=== PATIENT | male | born 1965 | race Caucasian/White ===

== ENCOUNTER 2018-01-25 04:40 | Inpatient (IN) | payer BC ==
[2018-01-24 16:00] LABS: INR 0.9
[~2018-01-25] VITALS: Ht 182.9 cm; Wt 106.1 kg
[2018-01-25] VITALS (16 sets, daily range): BP systolic 104–122; BP diastolic 70–89
--- NOTE | 2018-01-25 01:45 | LEVENE H&P ---
DATE OF ADMISSION: January 25, 2018 IDENTIFICATION/CHIEF COMPLAINT Armand is a 52-year-old gentleman with progressive left hip pain. HISTORY OF PRESENT ILLNESS Patient has a longstanding history of hip arthritis, progressively painful and debilitating, refractory to conservative care. Surgery is indicated to relieve symptoms after failure of nonoperative measures. PAST MEDICAL HISTORY Notable for gout. PAST SURGICAL HISTORY Notable for: 1. Knee scope. 2. Tonsillectomy. 3. Hand surgery. ALLERGIES He has no known drug allergies. CURRENT MEDICATIONS He takes no prescription medications. SOCIAL HISTORY Negative for drug abuse. He chews tobacco and drinks beer routinely, but denies abuse. REVIEW OF SYSTEMS Noncontributory. PHYSICAL EXAMINATION GENERAL: This is a well-developed, well-nourished male who appears stated age. HEENT: Normocephalic, atraumatic. NECK: Supple. LUNGS: Clear. HEART: Regular rate and rhythm. ABDOMEN: Soft. ORTHOPEDIC EXAMINATION Left hip is very stiff. Combined flexion and rotation reproduces pain exactly. His hip girdle strength is good. Skin envelope is intact. Calves nontender. Neurovascular function intact. Radiographs demonstrate advanced left hip arthritis. ASSESSMENT Left hip degenerative joint disease, progressively painful and debilitating, refractory to conservative care. PLAN Per patient request, going to proceed with total hip arthroplasty. The nature of the procedure, the risks, benefits, the anticipated rehabilitative course were reviewed. The risks of the procedure include but are not limited to , major medical or anesthetic complication, infection, neurovascular injury, blood transfusion, stiffness, scarring, fracture or tendon rupture, leg length discrepancy, instability, implant loosening, migration, or failure, need for additional surgery and other unforeseen. He understands and wishes to proceed. A signed permit is placed in the chart. No guarantees are given or implied. [facility]
[2018-01-25] MEDS ORDERED: FAMOTIDINE 20 MG TAB ONE (05:27)
[2018-01-25] MEDS: NORMOSOL R SOLN(*) 1000 ML BAG 1,000 ML IV PRN ×2 (07:10→08:36)
[2018-01-25] MEDS ORDERED: DEXAMETHASONE SOD 4 MG/ML VIAL ONE (07:51)
[2018-01-25] MEDS ORDERED: fentaNYL CITR 100 MCG/2 ML AMP ONE (07:51)
[2018-01-25] MEDS ORDERED: PROPOFOL EMUL(*) 10MG/ML 20 ML 20 ML ONE (07:51)
[2018-01-25] MEDS ORDERED: LIDOCAINE MPF 1% 5 ML VIAL ONE (07:51)
[2018-01-25] MEDS ORDERED: ONDANSETRON 4 MG/2 ML VIAL ONE (07:51)
[2018-01-25] MEDS ORDERED: KETAMINE HCL-NS 50 MG/5 ML SYR ONE (07:52)
[2018-01-25] MEDS ORDERED: MIDAZOLAM 2 MG/2 ML VIAL IVP PRN (09:15)
[2018-01-25] MEDS ORDERED: ceFAZolin(*) 2GM/D5W 50ML 50 ML IVPB ONE (09:15)
[2018-01-25] MEDS ORDERED: TRANEXAMIC AC 1000 MG/10ML SDV 1,000 MG in DEXTROSE 5% 50 ML BAG 50 ML IV ONE (09:15)
[2018-01-25] MEDS ORDERED: LIDOCAINE/SOD BICARB 8.4% SYR ID ONE (09:15)
[2018-01-25] MEDS ORDERED: CELECOXIB 200 MG CAP PO ONE (09:15)
[2018-01-25] MEDS ORDERED: ACETAMINOPHEN 500 MG TAB PO ONE (09:15)
[2018-01-25] MEDS ORDERED: cloNIDine EPIDUR INJ 100MCG/ML 40 MCG, ROPIVACAINE 0.5% 20 ML VIAL 25 ML, EPINEPHrine H... INJ ONE (09:15)
[2018-01-25] MEDS ORDERED: FAMOTIDINE 20 MG/50 ML PREMIX IVPB ONE (09:15)
[2018-01-25] MEDS ORDERED: PREGABALIN 150 MG CAPSULE PO ONE (09:15)
[2018-01-25] MEDS ORDERED: VANCOMYCIN 1 GM VIAL ONE (09:30)
[2018-01-25] MEDS ORDERED: BISACODYL 10 MG SUPP PR PRN (12:10)
[2018-01-25] MEDS ORDERED: diphenhydrAMINE 50 MG/ML VIAL IVP PRN (12:10)
[2018-01-25] MEDS ORDERED: ACETAMINOPHEN 325 MG TAB PO PRN (12:10)
[2018-01-25] MEDS ORDERED: DIAZEPAM 5 MG TAB PO PRN (12:10)
[2018-01-25] MEDS ORDERED: ZOLPIDEM TARTRATE 5 MG TAB PO PRN (12:10)
[2018-01-25] MEDS ORDERED: BENZOCAINE/MENTHOL 1 EACH LOZG PO PRN (12:10)
[2018-01-25] MEDS ORDERED: NORMOSOL R SOLN(*) 1000 ML BAG 1,000 ML IV PRN (12:10)
[2018-01-25] MEDS ORDERED: MAGNESIUM HYDROXIDE* 30ML UDCP PO PRN (12:10)
[2018-01-25] MEDS ORDERED: PROMETHAZINE 25 MG/ML 1 ML AMP IVP PRN (12:10)
[2018-01-25] MEDS ORDERED: FLUSH 10 ML SYR IVP PRN (12:10)
[2018-01-25] MEDS ORDERED: diphenhydrAMINE 25 MG CAP PO PRN (12:10)
--- NOTE | 2018-01-25 12:25 | OPERATIVE REPORT 1 ---
EVENT DATE: January 25, 2018 SURGEON: Johan Hedrick MD ANESTHESIOLOGIST: Russ Pablo MD ANESTHESIA: General plus spinal. FINISHER HAND: SUSIE Quiroz, [employer] PREOPERATIVE DIAGNOSIS Left hip degenerative joint disease. POSTOPERATIVE DIAGNOSIS Left hip degenerative joint disease. PROCEDURE PERFORMED Left total hip arthroplasty. ESTIMATED BLOOD LOSS 300 cc. DRAINS None. SPECIMENS None. COMPLICATIONS None apparent. IMPLANTS USED Milo system with an Accolade II 132-degree size 6 stem, a Trident PSL SOARES acetabular shell size 32 mm, Trident X3 zero-degree polyethylene liner to accommodate 36 mm head a Biolox Delta Ceramic V40 femoral head, 36 mm plus 5 mm neck length. INDICATIONS Armand is a 52-year-old gentleman with intractable pain related to endstage hip arthritis. Surgery indicated to relieve symptoms after failure of nonoperative measures. DESCRIPTION OF PROCEDURE The patient was taken to the operating room, placed supine on the operating table. Spinal block is administered by the anesthesiologist. General anesthesia induced. Antibiotics and TXA are administered IV. The patient is positioned on the right lateral decubitus position on a well-padded pegboard. Pelvis is secured in the vertical position. All bony prominences and superficial nerves are well padded. The left hip girdle and lower extremity are prepped and draped in the usual sterile fashion for hip arthroplasty. A small incision posterolateral approach is made and carried down through the skin and subcutaneous tissue down to the deep fascia. The fascia is incised over the tip of the trochanter, extended distally in line with the femur, proximally in line with the schuyler fibers. Schuyler fibers are split bluntly. Trochanteric bursa is excised. Interval between the abductor and external rotator is identified and a blunt Hohmann is used to protect the abductor mechanism. An L capsulotomy/tenotomy is performed with the horizontal limb just above the piriformis and peeling the external rotators and the capsule off the posterior aspect of the femur. These are tagged with #2 Vicryl for later anatomic reattachment. Femoral head is dislocated. Endstage arthritic change is noted. A 1.5 cm neck cut is made consistent with preoperative templating. The femur is then translocated anteriorly and coty-acetabular retractors are placed with the tips down on bone to avoid injury to critical neurovascular structures. Labrum and pulvinar are excised. A 44 mm reamer is used to medialize through the true medial wall of the acetabulum. This is expanded in 2 mm increments up to 52 where nice rim contact is obtained. A trial 52 has nice fit. The throat of the acetabulum was opened with a 53 to accommodate the raised rim liner. The surfaces are copiously lavaged. The actual shell is impacted in approximately 40 degrees of lateral opening and 15 to 20 degrees of anteversion using the extracorporeal guide, internal bony landmarks, and the transverse acetabular ligament to guide socket placement. Rock-solid fixation is achieved. No adjuvant fixation is felt to be needed. Peripheral osteophytes were resected, particularly inferiorly around the acetabulum and then the actual liner was impacted into the cleaned and dried shell. It seats nicely. Attention is turned to femoral preparation. The superior neck is resected with a [employer] cutter. A Shanon awl finds the canal. Tapered serial broaching is performed with the broach only technique, starting with the 1 and working up to 6 where nice stability fit and fill are obtained. Trial reduction is performed off the 6 and and good mosque of the limb length and stability are achievable. The broach is extracted. The actual stem is then impacted, seats at about the same height. Trial reduction was performed with various neck lengths. Plus 5 is felt to be optimal with mosque of the soft tissue tension and limb length. Green taper is lavaged and dried, and the actual Biolox head is impacted into position. The joint is reduced. Wound is copiously lavaged. Meticulous hemostasis was assured. Pain cocktail infiltrated throughout. 1 gram of Vancomycin powder is placed deep in the wound and then the external rotators and capsule are reapproximated anatomically through drill holes in the posterolateral femur with a #2 Vicryl. Distal fascia closed with #2 Ethibond, proximally with #2 Vicryl. Subcutaneous tissue closed with 3-0 Vicryl, the skin with surgical darell, Xeroform and 4 x 4 dry, sterile dressing. Patient is rolled supine. Abduction pillow is placed. Awakened from anesthesia and taken to the recovery room in stable condition having tolerated the procedure well. PLAN Plan is for standard [facility] protocol. [facility]
--- NOTE | 2018-01-25 13:16 | RADIOLOGY IMAGING REPORT ---
FACILITY: [facility] PATIENT NAME: Armand Nichole : 1965 MR: [id number] V: [id number] EXAM DATE: ORDERING PHYSICIAN: KYLE CHONG TECHNOLOGIST: Location: [facility] Patient: Armand Nichole : 1965 Visit/Account:[id number] Date of Sevice: 01/25/2018 PELVIS Indication: [facility] LEFT Comparison: None. Findings: Postoperative changes from left total hip arthroplasty are seen. The acetabular and femora l components appear in good position. Impression: Postoperative changes left total hip arthroplasty. Report Dictated By: Christo Brooks at 01/25/2018 1:11 PM Report E-Signed By: Christo Brooks at 01/25/2018 1:11 PM WSN:VALORIE
--- NOTE | 2018-01-25 14:31 | Hospitalist Consultation ---
History of Present Illness Requesting Physician Dr. Hedrick Reason for Consult Medical Management Chief Complaint s/p left hip replacement History of Present Illness He was admitted s/p left hip replacement. It is reported the surgery went well and without complication. History Home Meds No Active Prescriptions or Reported Meds Allergies: Coded Allergies: No Known Drug Allergies (Unverified , 01/19/18) Patient History: FH: atrial fibrillation FATHER Hx Smoking: Yes (CHEWS TOBACCO 1 CAN Q3DAYS 35 YRS) Caffeine Intake: Coffee Caffeine/Cups Per Day: 1-2 CUPS DAILY, CAN SODA DAILY Hx Alcohol Use: Yes (3-4 beers/day) Alcohol Used: Beer Hx Substance Use Disorder: No Social Drug Use: Never History of IV Drug Use: No Review of Systems All Systems Reviewed/Normal: Yes, Except as Noted Exam Vital Signs Vital Signs Date Time Temp Pulse Resp B/P (MAP) Pulse Ox O2 Delivery O2 Flow Rate FiO2 01/25/18 13:57 94 Nasal Cannula 2.0 01/25/18 13:42 97.9 63 16 119/74 (89) General Appearance: Alert, Awake, No Acute Distress, Afebrile Neuro: No Gross deficits Cardiovascular: Regular Rate and Rhythm Respiratory: No Respiratory Distress, Clear to Auscultation GI: Abd Soft and Non-Tender Psych: Alert & Oriented X3, Appropriate Mood & Affect Assessment and Plan Problems: (1) Status post left hip replacement Status: Acute Assessment & Plan: He will be placed on Aspirin 325mg daily for DVT pr ophylaxis. He has no history of DVT or PE. Venous Thromboembolism Antithrombotics Is Pt On Any Antithrombotics?: No Exam Sepsis Risk: No Definite Risk MARJ BOURNEP Jan 25, 2018 14:31
[2018-01-25] MEDS: APAP/HYDROCODONE 325/7.5 TAB PO PRN ×2 (14:43→20:22)
[2018-01-25] MEDS: CELECOXIB 200 MG CAP PO SCH (17:00)
[2018-01-25] MEDS ORDERED: NS(*) 0.9% 250 ML BAG 250 ML ONE (17:53)
[2018-01-25] MEDS: ceFAZolin(*) 1 GM VIAL 1 GM in NS(*) 0.9% 100 ML ADDVANT BAG 100 ML IVPB SCH (17:54)
[2018-01-26 01:30] VITALS: BP 101/60
[2018-01-26] MEDS: ceFAZolin(*) 1 GM VIAL 1 GM in NS(*) 0.9% 100 ML ADDVANT BAG 100 ML IVPB SCH ×2 (01:35→09:51)
[2018-01-26] MEDS: APAP/HYDROCODONE 325/7.5 TAB PO PRN ×2 (05:45→09:51)
[2018-01-26] MEDS ORDERED: HYDR-654 PO (07:46)
[2018-01-26] MEDS ORDERED: ASPI-757 PO (08:19)
--- NOTE | 2018-01-26 08:20 | Hospitalist Progress Note ---
Subjective Progress Notes Subjective He has no complaints this morning. He had no acute events overnight. He would like to go home today. Patient Complains of: Cardiovascular: No: Chest Pain Respiratory: No: Shortness of Breath Physical Exam Vital Signs Date Time Temp Pulse Resp B/P (MAP) Pulse Ox O2 Delivery O2 Flow Rate FiO2 01/26/18 01:30 60 16 101/60 (74) 96 Nasal Cannula 1.0 01/25/18 20:15 98.7 Intake and Output 01/26/18 07:00 Intake Total 5230 ml Balance 5230 ml Intake Oral 2580 ml IV Total 2650 ml # Voids 5 General Appearance: Alert, Awake, No Acute Distress, Afebrile Neuro: No Gross deficits Cardiovascular: Regular Rate and Rhythm Respiratory: No Respiratory Distress, Clear to Auscultation GI: Soft and Non-Tender Psych: Alert & Oriented X3, Appropriate Mood & Affect Assessment and Plan Problems: (1) Status post left hip replacement Status: Acute Assessment & Plan: He will be placed on Aspirin 325mg daily for DVT prophylaxis. He has no history of DVT or PE. Exam Sepsis Risk: No Definite Risk MARJ BOURNE ELDER COUNSELOR Jan 26, 2018 08:20
[2018-01-26] MEDS: CELECOXIB 200 MG CAP PO SCH (08:56)
[2018-01-26] MEDS ORDERED: ASPIRIN 325 MG TAB PO SCH (09:00)
== END 2018-01-26 11:30 | disposition home or self-care (01) | DRG 470 ==
LOC: OR 04:40 → MED 13:40
PROVIDERS: ADMIT Orthopaedic Surgery; ATTEND Orthopaedic Surgery
PROC: 0SRB04Z Replacement of Left Hip Joint with Ceramic on Polyethylene Synthetic Substitute, Open Approach (ICD-10-PCS; principal; 2018-01-25 09:42)
DX: M16.12 Unilateral primary osteoarthritis, left hip (principal); F17.220 Nicotine dependence, chewing tobacco, uncomplicated; G47.33 Obstructive sleep apnea (adult) (pediatric); M1A.9XX0 Chronic gout, unspecified, without tophus (tophi)
CPT/HCPCS: 36415; 72170; 85610; 86850; 86900; 86901; 97161; 97165; C1776; J0171; J0690; J0735; J1100; J1885; J2001; J2250; J2405; J2704; J2795; J3010; J3370; J3490; J7050; J7060